=== PATIENT | female | born 1980 | race Caucasian/White ===

== ENCOUNTER 2019-04-24 11:54 | Emergency (ER) | payer MEDICAID ==
[~2019-04-24] VITALS: Ht 170.2 cm; Wt 72.6 kg
[2019-04-24 12:22] VITALS: BP 123/80
[2019-04-24] MEDS ORDERED: LACTULOSE 20Gm/30ML SOLN PO ONE (13:00)
== END 2019-04-24 13:49 | disposition home or self-care (01) ==
LOC: ER 11:54
DX: K59.00 Constipation, unspecified (principal); I10 Essential (primary) hypertension; F17.210 Nicotine dependence, cigarettes, uncomplicated; Z86.39 Personal history of other endocrine, nutritional and metabolic disease
CPT/HCPCS: 74018